=== PATIENT | male | born 1980 | race Caucasian/White ===

== ENCOUNTER 2017-07-29 19:04 | Emergency (ER) | payer OTHER, MEDICAID ==
[2017-07-29 19:08] VITALS: BP 108/76
--- NOTE | 2017-07-29 19:09 | EDPHY ---
H & P Time Seen by Provider: 07/29/17 19:05 HPI/ROS: HPI Medical clearance. 37-year-old male with Promon. This patient was arrested secondary to failure to appear on a warrant. He has been drinking alcohol and has a history of alcohol abuse as well as substance abuse. He is homeless. He has a recent history of amputations of his right 1st and 2nd toes secondary to frostbite injury. He presents the emergency department for medical clearance for fpc after wound check of his amputation sites. He currently has no other complaints. ROS: Constitutional: No fever, no chills. No weakness. Respiratory: No cough. No shortness of breath. Cardiac: No chest pain, no palpitations. Gastrointestinal: No abdominal pain, no vomiting, no diarrhea. Musculoskeletal: No back pain. No neck pain. As above. Skin: No rashes. As above. Neurological: No headache. No focal weakness or altered sensation. Past medical history: As above. Alcohol and substance abuse. Social history: Homeless. Smoker. Here with Promon. Physical Exam: General Appearance: Alert, intoxicated. Strong odor of alcohol on his breath. Disheveled in appearance. This patient is responding to questions appropriately albeit was slurred speech. This patient appears generally well- hydrated and well-nourished. Eyes: Pupils equal and round no pallor or injection. No lid edema, erythema or injection. Right foot: Significant for amputation of his big toe just distal to the metatarsal phalangeal joint and amputation of his distal 2nd toe. These sites appear to be healing appropriately. There is no evidence of acute infectious process. No gangrene. There is a small amount of localized erythema just proximal to the amputation sites. No spreading erythema or edema. No purulent drainage. Right foot is otherwise neurovascularly intact. Left foot: Poor hygiene otherwise normal on exam. Neurological: Motor sensory function is grossly intact. Cranial nerves are normal. Skin: Warm and dry, no rashes. Extremities are symmetrical. All joints range without pain or impingement. Psychiatric: No agitation. No depression. Database: EKG: Imaging: Procedures: Emergency department course: Vital signs reviewed. Patient is afebrile. After my evaluation, the patient was medically cleared for discharge. Follow-up and return to emergency department precautions were reviewed with him. All of his questions were answered. He was discharged in good condition with Promon. Differential Diagnosis: The differential diagnosis on this patient includes but is not limited to wound check of amputation sites of right 1st and 2nd toes. Acute cellulitis, necrotizing fasciitis, gangrene, other serious bacterial infection, acute traumatic injury unlikely. This represents a partial list of diagnoses considered. These considerations are based on history, physical exam, past history, reassessment and diagnostic testing. Smoking Status: Light smoker Constitutional: Initial Vital Signs Temperature (C) 36.4 C 07/29/17 19:07 Heart Rate 102 H 07/29/17 19:07 Respiratory Rate 18 07/29/17 19:07 Blood Pressure 108/76 07/29/17 19:07 O2 Sat (%) 96 07/29/17 19:07 O2 Delivery Mode Room Air Allergies/Adverse Reactions: heparin Allergy (Verified 07/29/17 19:06) Home Medications: Medication Instructions Recorded NK [No Known Home Meds] 07/29/17 Departure - Departure Disposition: Law Enforcement/Court/Long Term Clinical Impression: Medical clearance for incarceration, History of partial amputation of toe of right foot Condition: Good Instructions: Toe Amputation (DC) Additional Instructions: Read and follow provided instructions. Follow-up with your surgeon who performed the amputation on your toes next week for re-evaluation in their clinic. Do not drink alcohol. Return to the emergency department for worsening pain, swelling, drainage of pus , fever or other serious concerns. Referrals: Patient,NotPresent [Primary Care Provider] - As per Instructions
== END 2017-07-29 19:22 ==
LOC: EEVIPCON 19:04
DX: F17.200 Nicotine dependence, unspecified, uncomplicated; Z89.421 Acquired absence of other right toe(s)